=== PATIENT | female | born 1965 | race American Indian/Alaskan Native ===

== ENCOUNTER 2021-06-12 09:04 | Emergency (ER) | payer MEDICARE ==
[2021-06-12] MEDS ORDERED: SODIUM CHLORIDE 0.9% 500 ML 500 ML IV ONE (09:40)
[2021-06-12 10:21] LABS: Basophils % (Auto) 0.6 % (0.0-1.8); Eosinophils # (Auto) 0.1 K/mm3 (0.0-0.4); Eosinophils % (Auto) 1.1 % (0.0-4.3); Hematocrit 40.6 % (30.3-42.9); Hemoglobin 13.3 gm/dl (10.1-14.3); Lymphocytes # (Auto) 2.2 K/mm3 (1.2-5.4); Mean Corpuscular HGB Conc 33 % (30-34); Mean Corpuscular Volume 103 fl (79-97); Monocytes # (Auto) 0.6 K/mm3 (0.0-0.8); Monocytes % (Auto) 8.8 % (0.0-7.3); Platelet Count 286 K/mm3 (140-440); Red Blood Count 3.94 M/mm3 (3.65-5.03); Red Cell Distribution Width 17.4 % (13.2-15.2)
[2021-06-12 10:34] LABS: INR 0.91 (0.87-1.13)
--- NOTE | 2021-06-12 10:35 | XRay Report ---
CHEST 1 VIEW INDICATION: Syncope. COMPARISON: None FINDINGS: SUPPORT DEVICES: None. HEART: Within normal limits. LUNGS/PLEURA: No acute air space or interstitial disease. ADDITIONAL FINDINGS: None. IMPRESSION: 1. No acute findings. Signer Name: Tyson Nation MD Signed: 06/12/2021 10:30 AM Workstation Name: [id number]
[2021-06-12 10:42] LABS: Creatine Kinase MB 1.2 ng/mL (0.0-4.0)
[2021-06-12 10:46] LABS: Alanine Aminotransferase 18 units/L (7-56); Albumin 4.1 g/dL (3.9-5); Blood Urea Nitrogen 10 mg/dL (7-17); Calcium 10.6 mg/dL (8.4-10.2); Hemolysis Index 34
[2021-06-12 11:02] LABS: BUN/Creatinine Ratio 1
--- NOTE | 2021-06-12 11:24 | Emergency Department Report ---
ED Syncope HPI - General Chief Complaint: Syncope Stated Complaint: SYNCOPE Time Seen by Provider: 06/12/21 09:39 Source: patient Exam Limitations: no limitations - History of Present Illness Initial Comments: pt was in waiting room waiting for her colonoscopy , then she almost passed out when arrived htere she was dizzy ut was talking , Dr pal was there, pt was was prepping her colon for scope and then almost passed out today Precipitating Factors: Positive: confusion, lightheadedness, nausea Loss of Consciousness: no loss of consciousness Current Symptoms: back to normal - Related Data Allergies/Adverse Reactions: Allergies lisinopril Allergy (Verified 06/08/21 17:22) Unknown pineapple Allergy (Verified 06/08/21 17:22) Unknown Home Medications: Ambulatory Orders Calcium 06/08/21 Celecoxib 06/08/21 Cinacalcet HCl 06/08/21 Midodrine HCl 06/08/21 Omeprazole 06/08/21 Sevelamer Carbonate 06/08/21 hydrOXYzine 06/08/21 ED Review of Systems ROS: Stated complaint: SYNCOPE Other details as noted in HPI Constitutional: denies: chills, fever Eyes: denies: eye pain, eye discharge, vision change ENT: denies: ear pain, throat pain Respiratory: denies: cough, shortness of breath, wheezing Cardiovascular: denies: chest pain, palpitations Endocrine: no symptoms reported Gastrointestinal: denies: abdominal pain, nausea, diarrhea Genitourinary: denies: urgency, dysuria, discharge Musculoskeletal: denies: back pain, joint swelling, arthralgia Skin: denies: rash, lesions Neurological: denies: headache, weakness, paresthesias Psychiatric: denies: anxiety, depression Hematological/Lymphatic: denies: easy bleeding, easy bruising ED Past Medical Hx - Past Medical History Previous Medical History?: Yes Hx Asthma: Yes Additional medical history: ESRD, diaylsis pt MWF. HTN, neuropathy - Surgical History Past Surgical History?: Yes Additional Surgical History: thyroidectomy, - Social History Smoking Status: Current Every Day Smoker Substance Use Type: Marijuana - Medications Home Medications: Home Medications Medication Instructions Recorded Confirmed Last Taken Type Calcium 06/08/21 Unknown History Celecoxib 06/08/21 Unknown History Cinacalcet HCl 06/08/21 Unknown History Midodrine HCl 06/08/21 Unknown History Omeprazole 06/08/21 Unknown History Sevelamer Carbonate 06/08/21 Unknown History hydrOXYzine 06/08/21 Unknown History ED Physical Exam - General Limitations: No Limitations General appearance: alert, in no apparent distress - Head Head exam: Present: atraumatic, normocephalic - Eye Eye exam: Present: normal appearance - ENT ENT exam: Present: mucous membranes moist - Neck Neck exam: Present: normal inspection - Respiratory Respiratory exam: Present: normal lung sounds bilaterally. Absent: respiratory distress - Cardiovascular Cardiovascular Exam: Present: regular rate, normal rhythm. Absent: systolic murmur, diastolic murmur, rubs, gallop - GI/Abdominal GI/Abdominal exam: Present: soft, normal bowel sounds - Extremities Exam Extremities exam: Present: normal inspection - Back Exam Back exam: Present: normal inspection - Neurological Exam Neurological exam: Present: alert, oriented X3 - Psychiatric Psychiatric exam: Present: normal affect, normal mood - Skin Skin exam: Present: warm, dry, intact, normal color. Absent: rash ED Course Vital Signs 06/12/21 06/12/21 06/12/21 09:23 09:30 09:32 Temperature 98.1 F Pulse Rate 97 H 98 H Respiratory 14 14 11 L Rate Blood Pressure 103/72 O2 Sat by Pulse 100 100 100 Oximetry 06/12/21 06/12/21 06/12/21 09:46 10:00 10:16 Temperature Pulse Rate 100 H 96 H 98 H Respiratory 15 14 14 Rate Blood Pressure 112/78 113/65 107/81 O2 Sat by Pulse 100 100 100 Oximetry 06/12/21 10:30 Temperature Pulse Rate 88 Respiratory 8 L Rate Blood Pressure 107/81 O2 Sat by Pulse 100 Oximetry ED Medical Decision Making - Lab Data Result diagrams: 06/12/21 10:05 06/12/21 10:05 - EKG Data -: EKG Interpreted by In EKG shows normal: sinus rhythm Rate: normal - EKG Data Interpretation: nonspecific ST-T wave suman Critical care attestation.: If time is entered above; I have spent that time in minutes in the direct care of this critically ill patient, excluding procedure time. ED Disposition Clinical Impression: Syncope, Dehydration, Chronic renal failure Disposition: 01 HOME / SELF CARE / HOMELESS Is pt being admited?: No Does the pt Need Aspirin: No Condition: Stable Instructions: Syncope (ED), Rehydration, Adult, Dehydration, Adult Referrals: BALJINDER SAN MD [Primary Care Provider] - 3-5 Days
[2021-06-12 11:53] VITALS: BP 120/94
--- NOTE | 2021-06-12 12:06 | Electrocardiograph Report ---
[facility] Test Date: 2021-06-12 Test Time: 09:07:04 Pat Name: TANO SUAZO Department: Room: Gender: F Assurance Assistant: AYAZ : 1965 Requested By: DIANNA MEYERS Order Number: [id number] Reading MD: Hu Simmons Measurements Intervals [place] Rate: 98 P: 67 ND: 197 QRS: 55 QRSD: 104 T: 102 QT: 368 QTc: 470 Interpretive Statements Sinus rhythm Borderline prolonged ND interval Biatrial enlargement Nonspecific T abnormalities, lateral leads No previous ECG available for comparison Electronically Signed On 06-12-2021 12:05:36 EDT by Hu Simmons
== END 2021-06-12 11:54 | disposition home or self-care (01) ==
LOC: ED 09:04
DX: R55 Syncope and collapse (principal); E86.0 Dehydration; N18.9 Chronic kidney disease, unspecified; F17.200 Nicotine dependence, unspecified, uncomplicated; F12.90 Cannabis use, unspecified, uncomplicated; J45.909 Unspecified asthma, uncomplicated
CPT/HCPCS: 36415; 72020; 80053; 82550; 82553; 83735; 83880; 84484; 85025; 85610; 93005; 99283; J7040; 96360; 99284